=== PATIENT | male | born 1990 | race Caucasian/White ===

== ENCOUNTER 2021-06-26 17:19 | Emergency (ER) | payer OTHER ==
[2021-06-26 17:48] VITALS: BP 145/97
--- NOTE | 2021-06-26 18:05 | XRAY Report ---
PROCEDURE: Foot 3 View RT INDICATIONS: injury/pain TECHNIQUE: 3 views of the foot were acquired. COMPARISON: None FINDINGS: Bones: No fractures or dislocations. No suspicious bony lesions. Soft tissues: No tibiotalar joint effusion. Achilles tendon appears normal. IMPRESSION: No gross acute right foot fracture or dislocation. Reviewed by: Fredo Hu MD on 06/26/2021 6:03 PM [facility] Approved by: Fredo Hu MD on 06/26/2021 6:03 PM [facility] Station ID: [id number]
[2021-06-26] MEDS ORDERED: predniSONE 20 MG TABLET PO STA (18:50)
[2021-06-26] MEDS ORDERED: IBUPROFEN 800 MG TABLET PO STA (18:50)
--- NOTE | 2021-06-26 18:51 | ED Physician Documentation ---
PD HPI LOWER EXT INJURY - Stated complaint Stated Complaint: RT FOOT INJ - Chief complaint Chief Complaint: Ext Problem - History obtained from History obtained from: Patient - Additional information Additional information: Pt comes to the ED with cc of R foot pain for the past few days. He denies distinct injury, but does note he is on his feet a lot. Pt states he has not been wearing new shoes. He states that the pain is along his Achilles tendon and wraps around his lateral heel. No swelling. No deformity. No other complaints at this time. Review of Systems Ten Systems: 10 systems reviewed and negative Constitutional: reports: Reviewed and negative Eyes: reports: Reviewed and negative Ears: reports: Reviewed and negative Nose: reports: Reviewed and negative Throat: reports: Reviewed and negative Cardiac: reports: Reviewed and negative Respiratory: reports: Reviewed and negative GI: reports: Reviewed and negative : reports: Reviewed and negative Skin: reports: Reviewed and negative Musculoskeletal: reports: Extremity pain, Pain with weight bearing Neurologic: reports: Reviewed and negative Psychiatric: reports: Reviewed and negative Endocrine: reports: Reviewed and negative Immunocompromised: reports: Reviewed and negative PD PAST MEDICAL HISTORY - Present Medications Home Medications: Ambulatory Orders Medication Instructions Recorded Confirmed Ibuprofen [Motrin] 800 mg PO Q8H PRN #30 tablet 06/26/21 predniSONE [Deltasone] 60 mg PO DAILY 3 Days #9 tablet 06/26/21 - Allergies Allergies/Adverse Reactions: Allergies Allergy/AdvReac Type Severity Reaction Status Date / Time No Known Drug Allergies Allergy Verified 06/26/21 17:33 PD ED PE NORMAL - Vitals Vital signs reviewed: Yes - General General: Alert and oriented X 3, No acute distress, Well developed/nourished - HEENT HEENT: Atraumatic, PERRL, EOMI, Moist mucous membranes - Neck Neck: Supple, no meningeal sign - Cardiac Cardiac: Strong equal pulses - Respiratory Respiratory: No respiratory distress - Abdomen Abdomen: Normal bowel sounds, Soft, Non tender, Non distended - Derm Derm: Normal color, Warm and dry, No rash - Extremities Extremities: No deformity, No edema, Other (R Achilles tendon and insertion tenderness. Tendon is intact. Tender over lateral heel. No plantar fascial tenderness.) - Neuro Neuro: Alert and oriented X 3 - Psych Psych: Normal mood, Normal affect Results - Vitals Vitals: Vital Signs - 24 hr 06/26/21 06/26/21 17:29 17:43 Temperature 36.4 C L Heart Rate 100 93 Respiratory 14 18 Rate Blood Pressure 155/120 H 145/97 H O2 Saturation 97 100 Oxygen O2 Source Room air - Rads (name of study) R foot XR Radiology: Final report received, EMP read indepedently, See rad report (neg) PD MEDICAL DECISION MAKING - ED course Complexity details: reviewed results, re-evaluated patient, considered differential, d/w patient ED course: I d/w pt that the XR is negative, and in the absence of a distinct injury, the patient most likely has an overuse injury/strain, which has caused inflammation. We have discussed symptomatic management at home. Departure - Departure Disposition: Home, Self Care Clinical Impression: Achilles tendinitis Qualifiers: Laterality: right Qualified Code(s): M76.61 - Achilles tendinitis, right leg Condition: Stable Instructions: Achilles Tendonitis Prescriptions: predniSONE [Deltasone] 60 mg PO DAILY 3 Days #9 tablet Ibuprofen [Motrin] 800 mg PO Q8H PRN #30 tablet PRN Reason: PAIN &/OR FEVER Discharge Date/Time: 06/26/21 19:22
== END 2021-06-26 19:22 | disposition home or self-care (01) ==
LOC: SUPCPDRO 17:19 → ED 17:19
DX: M76.61 Achilles tendinitis, right leg (principal)
CPT/HCPCS: 73630; 99283; A9270; J7512

== ENCOUNTER 2021-11-25 09:03 | Outpatient (CLI) | payer OTHER ==
[2021-11-25 09:54] VITALS: BP 126/80
--- NOTE | 2021-11-25 09:54 | SLEEP CARE CONSULTATION ---
Information from patient questionnaire entered by Claudio Camara MA. I have reviewed and concur with the information entered by Claudio Camara MA. This document represents the service I personally performed and the decisions made by , Miracle Schaefer ARNP. History of Present Illness Service Date and Time: 11/25/2021 0903 Reason for Visit: New patient (ONSET 06/14/2016, ) Chief Complaint: reports: Snoring, Observed pauses in breathing, Frequent awakenings at night Date of Onset: 1 YEAR Usual bedtime: VARIES, WORK SCHEDULE Time it takes to fall asleep: 30 MINUTES Snores at night: Yes Observed to quit breathing while asleep: Yes Number of times waking at night: 1-3 Reasons for waking at night: reports: Other (unknown reasons). denies: Choking, Snoring, Gasping for air Toss, Turn, or Twitch while sleeping: Yes Recalls having dreams: No Feels refreshed in the morning: No Morning headache: No Sleepy or fatigued during the day: Yes Ever fallen asleep while driving: No Takes day naps: No Dreams during day naps: No Prior sleep studies: No Additional HPI information: I had the pleasure of seeing SATHYA ALEXIS today regarding the possibility of him having a sleep disorder. His current complaints are observed pauses in breathing and frequent night awakenings. He has trouble staying asleep at night. He can fall asleep within 30 minutes but will wake up 1-3 times during the night. He states it varies but he typically feels refreshed in the morning. He has been told by others that he has a loud snore and that he has pauses in breathing when sleeping. He thinks his snoring has gotten louder over last couple years. One roommate did tell him that he was making choking sounds in his sleep after a pause in breathing. He states there are a lot of snorers in his family but none diagnosed with sleep disordered breathing. 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 Patient is Single and lives in [place]. Have you smoked in the past 12 months: No Cigarettes per day (20/pack): 20 Years of smokin Quit date: 2017 Smoking Pack Years: 7.0 Alcohol use: Yes Alcohol amount and frequency: 4 X MONTHLY Caffeine use: Yes Caffeine amount and frequency: 2 X MONTHLY Family History Family history of sleep disordered breathing: No Family Hx Sleep Apnea: Mother: Snoring, Father: Snoring, Sibling: Snoring Allergies and Home Medications Known drug allergies: No Drug allergies reviewed: Yes (NKDA) Home medication list reviewed: Yes (no daily medications) Allergy and home medication list: Allergies No Known Drug Allergies Allergy (Verified 06/26/21 17:33) Review of Systems Cardiovascular: denies: high blood pressure Gastrointestinal: denies: heartburn Neurological: reports: head trauma (when 17-18 yrs, concussion). denies: headaches Psychiatric: denies: anxiety, depression Ear/Nose/Throat: reports: wisdom teeth removed. denies: dry mouth/throat, injury to nose, tonsillectomy Endocrine: denies: thyroid disease Immunologic: denies: allergies to food or environment Physical Exam Vital signs obtained and entered by: KALINA CERDA Blood Pressure: 126/80 (RESP 16, PULSE 74, RIGHT) Cuff size: wrist Heart Rate: 77 O2 Saturation: 98 (CLOTH) Height: 5 ft 9 in Weight: 215 lb Body Mass Index: 31.7 BMI Classification: Obese Neck circumference: 16 (INCHES) Mouth and throat: narrow oropharynx Soft palate: long Hard palate: normal Uvula: long Uvula visualization: 0% Mallampati Class IV Tongue: enlarged in size with teeth masters on lateral edges Tonsils: 2+ Neck: normal w/o lymphadenopathy or thyromegaly Heart: regular rate and rhythm Lungs: clear bilaterally Impression and Plan 1. Suspected Obstructive Sleep Apnea-Hypopnea Syndrome, as suggested by a history of loud and irregular snoring, observed cessation of breath while asleep, gasping or choking in sleep, frequent awakening during the night, and unrefreshed sleep. Narrow oropharynx and obesity are common predisposing factors for obstructive sleep apnea-hypopnea syndrome. I recommend proceeding to polysomnography to confirm the diagnosis and to assess severity. If the patient has significant sleep disordered breathing, a manual CPAP titration study will also be performed to find the optimal treatment pressure. I informed the patient of what the sleep studies involve and after some discussion, obtained agreement to proceed. The pathophysiology of obstructive sleep apnea-hypopnea syndrome was discussed with the patient and health risks of cardiovascular and cerebrovascular disease if not treated. 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 Patient agreed to plan. * Schedule polysomnography * Avoid long distance driving or driving when feeling sleepy. * Avoid alcohol, sedative and muscle relaxant around bedtime. * Attempt to lose weight. * Review instructions provided by trained office staff on how to prepare for the sleep study. * Return for follow-up after sleep study completed. Counseling Topics: Weight loss health impact Visit Type: In Office Time Spent with Patient (minutes): 30 Provider Statement: I spent 100% of the Face to Face Visit with the patient with greater than 50% spent counseling the patient and coordination of care.
== END 2021-11-25 09:04 | disposition home or self-care (01) ==
LOC: SC 09:03
PROVIDERS: ATTEND Nurse Practitioner Family
DX: R06.83 Snoring (principal); G47.8 Other sleep disorders; R06.81 Apnea, not elsewhere classified; Z87.891 Personal history of nicotine dependence; E66.9 Obesity, unspecified; Z68.31 Body mass index [BMI] 31.0-31.9, adult
CPT/HCPCS: 99203; 99212

== ENCOUNTER 2021-12-17 13:59 | Outpatient (CLI) | payer OTHER ==
--- NOTE | 2021-12-17 13:59 | SLEEP CARE CONSULTATION ---
Information from patient questionnaire entered by Claudio Camara MA. I have reviewed and concur with the information entered by Claudio Camara MA. This document represents the service I personally performed and the decisions made by , Miracle Schaefer ARNP. History of Present Illness Service Date and Time: 12/17/2021 1320 Initial [place] Sleepiness Scale score: 1 (11/25/2021) Current [place] Sleepiness Scale score: 0 Additional HPI information: SATHYA ALEXIS returns for follow up and results of the recently performed polysomnography. I explained the pathophysiology behind obstructive sleep apnea. We then spent quite a bit of time discussing different treatment options. For mild obstructive sleep apnea, surgery and oral appliance are alternatives to nasal CPAP therapy but in moderate or severe cases, nasal CPAP is the most effective and reliable treatment. I reviewed the impact of weight changes on sleep apnea and strongly recommended losing weight. After some discussion, the patient opted to go with the nasal CPAP therapy. Nasal autoCPAP set at 4-15 cmH20 will be ordered with rationale explained. A manual titration study will be ordered if unable to find optimal pressure with office adjustments. I explained how CPAP machine works and what to expect when using the machine. Using CPAP every night in order to get used to it was emphasized. Patient advised to put CPAP mask on before getting into bed so as not to fall asleep without CPAP. To assist acclimation to CPAP use, it could also be used for a short time during day while reading or watching TV. The patient was instructed to call the CPAP supplier to discuss any mechanical problem that may occur. If the mask given is uncomfortable or is difficult to keep on through the night even with adjustment, contact the CPAP supplier as many will replace with another mask style if notified before 30 days. If snoring or perceives is not getting enough air or too much air from the machine, notify this office. Patient counseled not drink alcohol less than 4 hours before bedtime as it can increase snoring and apnea. Patient was cautioned about risks of drowsy driving until sleepiness symptoms resolve. Patient denies drowsy driving. Sleep Study - Results Type of Sleep Study: Polysomnography (F/U POLY, 12/05/2021 [facility], POS) Prior sleep studies: No Polysomnography/Home Sleep Study results: IMPRESSION: The quality of the study is good. The patient had normal sleep efficiency. The sleep architecture was abnormal for sleep fragmentation and reduced amount of time spent in slow wave sleep (N3). Respiratory monitoring showed very severe obstructive sleep apnea-hypopnea (AHI = 67.7) associated with frequent arousals, oxyhemoglobin desaturation and moderate hypoxia (mike oxygen saturation of 77%) . Baseline oxygen saturation was normal. The respiratory events occurred independently of sleep stage and body position (supine AHI = 80.3; non-supine = 51.08). Snore was moderate to loud in intensity. There was no significant periodic leg movement of sleep. Cardiac rhythm was normal sinus rhythm without significant arrhythmia. No abnormal behavior (parasomnia) observed during the night. Allergies and Home Medications Home medication list reviewed: Yes (no changes) Allergy and home medication list: Allergies No Known Drug Allergies Allergy (Verified 06/26/21 17:33) Review of Systems Review of systems same as previous: Yes (no changes) Physical Exam Vital signs obtained and entered by: MELO Height: 5 ft 9 in Weight: 218 lb (patient report) Body Mass Index: 32.1 BMI Classification: Obese Impression and Plan 1. Obstructive Sleep Apnea-Hypopnea Syndrome, very severe, with lowest oxygen saturation of 77%. Obviously this is the cause of the patients symptoms of unrefreshed sleep, and excessive daytime sleepiness. As mentioned above, the patient will be started on nasal autoCPAP therapy with pressure set at 4-15 cmH2 O. Compliance guidelines also reviewed. A copy of compliance guidelines will be given for reference at check out. 2. Hypoxemia, moderate, with a mike oxygen saturation of 77% and 45.6 minutes spent under 89%. His baseline oxygen saturation was normal with an average oxygen saturation of 93%. * Nasal auto CPAP therapy, pressure at 4-15 cm H2O. * Attempt to lose weight. * Avoid alcohol consumption near bedtime. * Avoid supine sleep until using CPAP. * The patient is again cautioned about driving until sleepiness completely resolves. * Return one month after CPAP obtained. I will assess response to therapy and compliance at that time. Counseling Topics: Weight loss health impact Prescriptions: Auto CPAP Visit Type: Telehealth Video Video Type: [place] Patient Location: Home Location of Provider: Office Patient agrees and consents to this telehealth visit type: Yes Patient agrees to have their insurance billed: Yes Time Spent with Patient (minutes): 20 Provider Statement: I spent 100% of the Telehealth Video Call with the patient with greater than 50% spent counseling the patient and coordination of care.
== END 2021-12-17 14:00 | disposition home or self-care (01) ==
LOC: SC 13:59
PROVIDERS: ATTEND Nurse Practitioner Family
DX: G47.33 Obstructive sleep apnea (adult) (pediatric) (principal); R09.02 Hypoxemia; E66.9 Obesity, unspecified; Z68.32 Body mass index [BMI] 32.0-32.9, adult